=== PATIENT | male | born 1990 | race Caucasian/White ===

== ENCOUNTER 2020-02-03 19:55 | Emergency (ER) | payer OTHER ==
[~2020-02-03] VITALS: Ht 177.8 cm; Wt 88.5 kg
[~2020-02-03 19:55] MED LIST: AMOX500 PO; HYDACE5 PO; NYSTRI30T TOP; PROM25 PO
[2020-02-03] MEDS ORDERED: Veetids 500500 MG PO (21:27)
[2020-02-03] MEDS ORDERED: IBUP400 PO (21:27)
== END 2020-02-03 21:45 | disposition home or self-care (01) ==
LOC: ER 19:55
DX: L03.211 Cellulitis of face (principal); F17.200 Nicotine dependence, unspecified, uncomplicated
CPT/HCPCS: 99283; A9270-GY

== ENCOUNTER 2020-02-11 23:14 | Emergency (ER) | payer OTHER ==
[~2020-02-11] VITALS: Ht 177.8 cm; Wt 95.2 kg
[~2020-02-11 23:14] MED LIST changes: +CLIN300 PO; +IBUP400 PO; +Norco 5-325 Ta1 EACH PO; +Veetids 500500 MG PO
== END 2020-02-12 01:57 | disposition home or self-care (01) ==
LOC: ER 23:14
DX: K04.7 Periapical abscess without sinus (principal); F17.210 Nicotine dependence, cigarettes, uncomplicated
CPT/HCPCS: 36415; 41800; 70491; 80048; 85025; 96374-59; 99282-25; 99284-25; A9270; J1100; J1885; J7120; Q9967

== ENCOUNTER 2022-12-18 19:27 | Emergency (ER) | payer OTHER ==
[~2022-12-18] VITALS: Ht 177.8 cm; Wt 104.3 kg
[~2022-12-18 19:27] MED LIST changes: +CEFD300 PO; +KETO10 PO
[2022-12-18] MEDS ORDERED: AMOCLA875 PO (20:25)
== END 2022-12-18 20:38 | disposition home or self-care (01) ==
LOC: ER 19:27
DX: K04.7 Periapical abscess without sinus (principal); F17.290 Nicotine dependence, other tobacco product, uncomplicated; Z79.899 Other long term (current) drug therapy
CPT/HCPCS: 96372; 99282-25; A9270; J1885

== ENCOUNTER 2023-10-29 21:28 | Emergency (ER) | payer OTHER ==
[~2023-10-29] VITALS: Ht 180.3 cm; Wt 88.5 kg
[~2023-10-29 21:28] MED LIST changes: +AMOCLA875 PO; +CEPH500 PO
[2023-10-29 21:37] VITALS: BP 136/87
[2023-10-29 23:52] LABS: Influenza A, PCR NEGATIVE (NEGATIVE); Influenza B, PCR NEGATIVE (NEGATIVE); Resp Syncytial Virus, PCR NEGATIVE (NEGATIVE); SARS-Cov-2 (COVID-19) PCR, MMC NEGATIVE (NEGATIVE)
== END 2023-10-30 00:13 | disposition home or self-care (01) ==
LOC: ER 21:28
PROVIDERS: Physician Assistant
DX: J06.9 Acute upper respiratory infection, unspecified (principal); L08.9 Local infection of the skin and subcutaneous tissue, unspecified; Z20.822 Contact with and (suspected) exposure to COVID-19; F17.290 Nicotine dependence, other tobacco product, uncomplicated
CPT/HCPCS: 0241U; 96374; 99284-25; A9270; J1885